=== PATIENT | male | born 1945 | race Caucasian/White ===

== ENCOUNTER 2022-08-04 12:14 | Emergency (ER) | payer MEDICARE, OTHER ==
[2022-08-04] MEDS ORDERED: Lidocaine 1% 20 ML MDV ONE (13:05)
== END 2022-08-04 14:00 | disposition home or self-care (01) ==
LOC: JP.ED 12:14
DX: S61.217A Laceration without foreign body of left little finger without damage to nail, initial encounter (principal); I10 Essential (primary) hypertension; W01.0XXA Fall on same level from slipping, tripping and stumbling without subsequent striking against object, initial encounter
CPT/HCPCS: 12004; 99282